=== PATIENT | male | born 1955 | race Caucasian/White ===

== ENCOUNTER 2024-02-05 09:43 | Outpatient (AMB) | payer MEDICARE, OTHER, SELFPAY ==
--- NOTE | 2024-02-05 09:46 | AM.OFFWIN_ITS ---
Intake Vital Signs 02/05/24 09:47 Height 6 ft Weight 183 lb BMI 24.8 BP 124/82 Blood Pressure Location Lt brachial Position Sitting Pulse 71 Pulse Source Pulse Oximeter Temp 98.3 F Temp Source Oral Pulse Oximetry (%) 98 Oxygen Delivery Method Room Air Intake Visit Reasons: [employer] Ear clogged both Intake Note: pt is here c/o bilateral ears blocked sensation. 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 Ear blockage worse x 1 week No pain, 0/10 No discharge Using Q tips without relief No other complaints PFSH Social History Patient Tobacco Use Status: Never used Tobacco Review of Systems Const Denies chills and Denies fever(s) ENT Reports vertigo (previously which resolved), Denies otalgia (blocked ears bilaterally), Denies nasal discharge and Denies sore throat Neuro Reports vertigo (previously which resolved) Physical Exam Vital Signs: Last Vital Signs Temp 98.3 F 02/05/24 09:47 Pulse 71 02/05/24 09:47 BP 124/82 02/05/24 09:47 Pulse Ox 98 02/05/24 09:47 Oxygen Delivery Method Room Air 02/05/24 09:47 BMI result Body Mass Index 24.8 General: Non-toxic, NAD. Speaking full sentences. Skin: Warm dry throughout Eye: EOMI HENT: Bilateral canals + cerumen, Unable to visualed L Tm. R TM non- erythematous, no non-bulging. No TM perforation or hemotympanum noted. Respiratory: No respiratory distress MSK: Full ROM extremities. Neurology: A/O. No aphasia or facial droop. Gait without abnormality Psych: Good mood and affect Office Procedures Cerumen Removal From which ear canal was the cerumen removed: bilateral Removal: irrigation Notes: patient tolerated procedure well and no complications [id number] Irrigation/Lavage Assessment & Plan Assessment & Plan (1) Impacted cerumen of both ears: Code(s): H61.23 - Impacted cerumen, bilateral Plan: Patient seen and evaluated. Verbal consent obtained and myself and MA irrigated both canals with good improvement. R canal clear. L canal has minimal cerumen in hair but TM visualized without erythema, perforation or trauma. Pt felt better and tolerated well. Patient gave verbal understanding and had no additional questions or concerns at time of discharge All questions answered Coding Level of Care Code New Pt Level 3 (64225) Diagnoses Impacted cerumen of both ears H61.23 CPT Codes Office Procedure - CPT: 66506-Xdr Irrigation/Lavage ([id number])
[2024-02-05 09:47] VITALS: BP 124/82; PULSE 71; TEMP 36.8; O2SAT 98; BMI 24.8
== END 2024-02-05 11:05 | disposition home or self-care (01) ==
PROVIDERS: PCP Internal Medicine; Visit Provider Physician Assistant
DX: H61.23 Impacted cerumen, bilateral (principal)
CPT/HCPCS: 69209; 99203